=== PATIENT | male | born 1970 | race Caucasian/White ===

== ENCOUNTER 2019-11-24 10:45 | Day surgery (SDC) | payer OTHER ==
[2019-11-21 14:46] VITALS: BMI 31.0
[2019-11-24] MEDS ORDERED: MIDAZOLAM HCL 2 MG/2 ML SINGLE DOSE VIAL ONE (11:17)
[2019-11-24 12:05] VITALS: TEMP 97.5
[2019-11-24 13:17] VITALS: BP 139/91; PULSE 88
--- NOTE | 2019-11-27 17:26 | PATH ---
Surgical Pathology Report Patient Name: MIKI SOLITARIO [facility]. Rec. #: [id number] /Age/Gender: 1970 (Age: 49) / M Account: [id number] Location: [facility] Taken: 11/24/2019 Received: 11/24/2019 Reported: 11/27/2019 Physicians: Lauri Castorena M.D. Specimen(s) Received A: DUODENUM B: STOMACH C: DISTAL ESOPHAGUS D: CECAL POLYP (2) Clinical History Colon screening, GERD Postoperative diagnosis: Heart burn, GERD, colon diverticuli, colon polyps, hemorrhoids Final Diagnosis A. DUODENUM, BIOPSY: DUODENAL MUCOSA WITHOUT SIGNIFICANT PATHOLOGIC FINDINGS. B. STOMACH, BIOPSY: GASTRIC BODY MUCOSA WITH MILD CHRONIC GASTRITIS. IMMUNOHISTOCHEMICAL STAIN FOR H. PYLORI IS NEGATIVE. C. DISTAL ESOPHAGUS, BIOPSY: SQUAMOUS MUCOSA WITH CHANGES OF MODERATE REFLUX TYPE ESOPHAGITIS. D. CECAL POLYP (2), BIOPSY: TUBULAR ADENOMA. SESSILE SERRATED POLYP. Positive and negative controls (internal if applicable) show appropriate results. Electronically Signed Beatriz Hancock M.D. Gross Description A. Received in formalin, labeled "biopsy duodenum" is a dodd, irregular portion of soft tissue measuring 0.4 cm. in greatest dimension. The specimen is submitted in toto in one cassette. B. Received in formalin, labeled "biopsy stomach" are 3 dodd, irregular portions of soft tissue averaging 0.3 cm. in greatest dimension. The specimens are submitted in toto in one cassette. C. Received in formalin, labeled "biopsy distal esophagus" are 2 dodd, irregular portions of soft tissue measuring 0.2 and 0.3 cm. in greatest dimension. The specimens are submitted in toto in one cassette. D. Received in formalin, labeled "biopsy cecal polyp" are 2 ddod, irregular portions of soft tissue measuring 0.3 and 0.4 cm. in greatest dimension. The specimens are submitted in toto in one cassette. DL/11/24/2019 saudi/11/24/2019
== END 2019-11-24 12:50 | disposition home or self-care (01) ==
LOC: JASU-ENDO 10:45
PROVIDERS: ATTEND Internal Medicine Gastroenterology
PROC: 0DB38ZX Excision of Lower Esophagus, Via Natural or Artificial Opening Endoscopic, Diagnostic (ICD-10-PCS; 2019-11-24)
PROC: 0DB68ZX Excision of Stomach, Via Natural or Artificial Opening Endoscopic, Diagnostic (ICD-10-PCS; 2019-11-24)
PROC: 0DBH8ZX Excision of Cecum, Via Natural or Artificial Opening Endoscopic, Diagnostic (ICD-10-PCS; principal; 2019-11-24 11:00)
DX: Z12.11 Encounter for screening for malignant neoplasm of colon (principal); K64.8 Other hemorrhoids; K57.30 Diverticulosis of large intestine without perforation or abscess without bleeding; Z80.0 Family history of malignant neoplasm of digestive organs; D12.0 Benign neoplasm of cecum; K21.0 Gastro-esophageal reflux disease with esophagitis; K29.50 Unspecified chronic gastritis without bleeding; R12 Heartburn; I10 Essential (primary) hypertension
CPT/HCPCS: 88305-TC; 88342-TC